=== PATIENT | female | born 1980 | race Caucasian/White ===

== ENCOUNTER 2023-03-26 20:30 | Emergency (ER) | payer BC, SELFPAY ==
--- NOTE | ~2023-03-26 | CT_ITS ---
EXAMINATION: CT ANGIOGRAM HEAD CT ANGIOGRAM NECK CLINICAL INFORMATION: Reason for Exam left side facial droop COMPARISON: Same-day CT head TECHNIQUE: Initial noncontrast high school science tutor imaging of the head and neck was performed. Comparison is made with noncontrast head CT from earlier today. Test bolus sequences followed by intravenous administration 70 mL of Omnipaque 350. Helical imaging was performed in the axial plane from the aortic arch to the skull vertex. Delayed postcontrast imaging of the head was also performed. The data was processed at the applied technologist's workstation for generation of MIP sequences. Angled MIPs and volume rendered reformatted images were also generated at an offline 3D workstation. Stenoses are assessed in accordance with Barajas et al. Quantification of Carotid Stenosis on CT Angiography. AJR 2006. 27(1):13-19. [address] CT examination was performed using dose optimization techniques as appropriate, variously including the following: *Automated exposure control *Adjustment of mA and/or kV according to patient size (this includes techniques or standardized protocols for targeted exams where dose is matched to indication/reason for exam; i.e. extremities or head) *Use of iterative reconstruction technique DLP: 1449.98 mGy-cm mGy-cm FINDINGS: CT HEAD: There is no abnormal intracranial enhancement. No mass-effect or ventricular shift is noted. No acute, territorial loss of mena-white differentiation. The ventricles and sulci are appropriate in size and configuration for the patient's stated age. Periventricular and subcortical white matter hypodensity is nonspecific but likely represents chronic microvascular ischemic change. No depressed calvarial fracture. The mastoid air cells and the visualized paranasal sinuses are well-aerated. CTA HEAD: Anterior circulation: Right internal carotid artery: No hemodynamically significant stenosis. Right middle cerebral artery: No hemodynamically significant stenosis. Right anterior cerebral artery: No hemodynamically significant stenosis. Left internal carotid artery: No hemodynamically significant stenosis. Left middle cerebral artery: No hemodynamically significant stenosis. Left anterior cerebral artery: No hemodynamically significant stenosis. Posterior circulation: Right vertebral artery: No hemodynamically significant stenosis. Left vertebral artery: No hemodynamically significant stenosis. Basilar artery: No hemodynamically significant stenosis. Right posterior cerebral artery: No hemodynamically significant stenosis. Left posterior cerebral artery: No hemodynamically significant stenosis. No high flow vascular malformation or significant aneurysmal dilatation is visualized. 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 CTA NECK: Aortic arch: Normal anatomy. Right common carotid artery: No hemodynamically significant stenosis. Right proximal internal carotid artery: No hemodynamically significant stenosis. Right mid/distal internal carotid artery: No hemodynamically significant stenosis. Left common carotid artery: No hemodynamically significant stenosis. Left proximal internal carotid artery: No hemodynamically significant stenosis. Left mid/distal internal carotid artery: No hemodynamically significant stenosis. Right vertebral artery: No hemodynamically significant stenosis. Left vertebral artery: No hemodynamically significant stenosis. CT NECK: No soft tissue abnormality in the neck. The visualized lung apices and upper mediastinum are within normal limits. CT/CT angio head neck stroke IMPRESSION: CT HEAD: No abnormal intracranial enhancement or territorial loss of mena-white differentiation. CTA NECK: No hemodynamically significant stenosis. CTA HEAD: No proximal vessel occlusion or high-grade stenosis. The above-mentioned findings were discussed with Dr Danny Ram by Dr. Lopez at 21:38 on 03/26/2023.
--- NOTE | ~2023-03-26 | CT_ITS ---
EXAMINATION: CT HEAD WITHOUT CONTRAST (STROKE PROTOCOL) CLINICAL INFORMATION: Stroke protocol. Left facial droop. COMPARISON: None available. TECHNIQUE: Contiguous axial imaging was performed from the skull base to vertex without intravenous administration of contrast. This CT examination was performed using dose optimization techniques as appropriate, variously including the following: *Automated exposure control *Adjustment of mA and/or kV according to patient size (this includes techniques or standardized protocols for targeted exams where dose is matched to indication/reason for exam; i.e. extremities or head) *Use of iterative reconstruction technique DLP: 604 mGy-cm. FINDINGS: There is no evidence of an extra-axial collection. There is no evidence of intra-axial or extra-axial hemorrhage. The ventricles and extra-axial CSF spaces are appropriate. Pang-white matter differentiation is normal. No mass, mass effect or infarct. The bone windows are normal. Mild inflammatory change in the right side of the sphenoid sinus. Paranasal sinuses, mastoid air cells and middle ears are otherwise clear. CT/CT head for stroke IMPRESSION: No acute intracranial pathology. Mild sphenoid sinus disease. This critical result was discussed with Dr Danny Ram at 2050 hours on 03/26/2023. It was ascertained that the content and urgency of the report was understood at the time of direct communication.
[2023-03-26 20:35] VITALS: BP 148/77; PULSE 97; RESP 18; TEMP 36.2; O2SAT 100; BMI 32.9
--- NOTE | 2023-03-26 20:40 | ECG_ITS ---
Test Reason : STROKE Blood Pressure : / mmHG Vent. Rate : 072 BPM Atrial Rate : 072 BPM P-R Int : 146 ms QRS Dur : 082 ms QT Int : 374 ms P-R-T Axes : 074 065 058 degrees QTc Int : 409 ms Normal sinus rhythm Normal ECG No previous ECGs available Referred By: Danny Ram Electronically Signed By:SABRA HUGHES MD
[2023-03-26 20:43] LABS: Prothrombin Time Whole Bld POC 12.2 sec (11.1-13.5)
[2023-03-26 20:46] LABS: Glucose, Whole Blood 113 mg/dL (60-115)
--- NOTE | 2023-03-26 20:46 | ED_ITS ---
HPI - Neuro Symptoms/Deficit General Chief Complaint: Stroke Stated Complaint: stroke? Time Seen by Provider: 03/26/23 20:40 Source: patient Limitations: no limitations History of Present Illness HPI Narrative: 42 years old with no significant past medical history, presents emergency room for left-sided facial droop. Patient reports that she was having dinner with her fami around 8:00 p.m. when they noticed that she had a facial droop and she could not close the left eye. Patient denies unilateral weakness, slurred speech, aphasia. No blurry vision, patient was able to ambulate and denies ataxia. Patient denies chest pain, abdominal pain, nausea or vomiting or recent trauma. report that she was positive to flu B last week Not on blood thinners or aspirin. NIHSS score on arrival 1 Time: 20:00 Timing confirmed by: family member Related Data Previous Rx's Medication Instructions Recorded prednisone 20 mg tablet 60 mg (3 x 20 mg) PO DAILY carrasco 03/26/23 palsy #21 tabs valacyclovir 1 gram tablet 1,000 mg PO Q8H #21 tabs 03/26/23 Allergies Allergy/AdvReac Type Severity Reaction Status Date / Time latex Allergy Unknown Verified 03/26/23 20:35 prochlorperazine Allergy Unknown Verified 03/26/23 20:35 [From Compazine] Review of Systems 2 Review of Systems: Yes all other systems are reviewed and are negative [facility] Social History Social History Smoked in Last 30 Days: No Use of substances other than those prescribed or required for medical reasons: No Physical Exam 2 Vital Signs: Vital Signs: Last Vital Signs Temp 97.9 F 03/26/23 21:24 Pulse 86 03/26/23 21:24 Resp 20 03/26/23 21:24 BP 137/69 03/26/23 21:24 Pulse Ox 98 03/26/23 21:24 O2 Del Method Room Air 03/26/23 21:24 BMI result Body Mass Index 32.9 General: Alert, Not in Distress Skin: No rash, warm HEENT: Atraumatic, No Exudate or Pharyngeal Erythema Resp: Normal Breath sounds bilaterally Cardio: Regular rate and Rhythm, Normal S1, S2 ABD: Abd soft, non tender, no guarding or rebound. Normal Bowel sounds. : No cva tenderness Neuro: Alert, oriented x4, PERRL Strenght 5/5 on all extremities Sensation is preserved in both lower and upper extremities Index to nose: normal left side facial droop with ptosis on the left side, and weakness of L eyebrow. No dysarthria, or aphasia No neglet. Visual moy are normal bilaterally Psych: Cooperative, NO SI Course Reevaluation(s) Reevaluation #1: I personally reviewed the patient's CT head which is normal. Discussed case with Neurology and repeated physical exam shows were clear weakness of the in the ER left side of the face. Patient physical exam, history, are consistent with Carrasco palsy. At this time I think that the risk of thrombolysis outweighed the benefit since likely the etiology is peripheral. The Will start patient on prednisone and valacyclovir for Carrasco palsy Time: 21:10 Reevaluation #2: No acute intracranial pathology. Mild sphenoid sinus disease. This critical result was discussed with Dr Danny Ram at 2050 hours on 03/26/2023. It was ascertained that the content and urgency of the report was understood at the time of direct communication Discussed CTA finding with radiology: no large vessle occlusion. Time: 21:38 Reevaluation #3: Repeated direct some prior to discharge is unchanged, patient has weakness of the left side of the face this involves her mouth, eyelid and 4 add. 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 Imaging was unremarkable which is also consistent with Carrasco palsy. Patient started on steroids and on antiviral. Will DC home Time: 21:39 Medications Administered Generic Name Dose Route Start Last Admin Trade Name Freq PRN Reason Stop Dose Admin Sodium Chloride 1,000 mls @ 999 mls/hr 03/26/23 20:45 03/26/23 21:12 Ns IV 03/26/23 21:45 999 mls/hr .Q1H1M SURESH Administration Discontinued Medications Generic Name Dose Route Start Last Admin Trade Name Freq PRN Reason Stop Dose Admin Iohexol 70 ml 03/26/23 21:06 03/26/23 21:07 Iohexol 350 Mg/Ml 100 Ml Infus..Btl IV 03/26/23 21:07 70 ml ONCE ONE Administration Lorazepam 0.5 mg 03/26/23 21:11 03/26/23 21:16 Lorazepam 0.5 Mg Tablet PO 03/26/23 21:12 0.5 mg ONCE ONE Administration Prednisone 60 mg 03/26/23 21:11 03/26/23 21:16 Prednisone 20 Mg Tablet PO 03/26/23 21:12 60 mg ONCE ONE Administration Valacyclovir HCl 1,000 mg 03/26/23 21:12 03/26/23 21:16 Valacyclovir Hcl 1,000 Mg Tablet PO 03/26/23 21:13 1,000 mg ONCE ONE Administration Medical Decision Making Medical Decision Making [facility] Narrative: Patient presented to the emergency room for left facial droop. Physical exam is consistent with Carrasco's palsy however she does have some sparing of the forehead therefore given the fact that patient will be within window for tPA stroke code was activated. Admission/Observation Consideration of admission/observation: Escalation of care including admission/observation considered Consult Healthcare Provider Management of the patient was discussed with: Psychiatric Aide Instructor (Neurology) Lab Data [facility] Lab Attestation statement: I reviewed the patient's lab results. 03/26/23 21:08 03/26/23 21:08 Labs: Lab Results 03/26/23 03/26/23 03/26/23 Range/Units 20:39 20:41 21:08 WBC 11.0 H (4.8-10.8) X10*3/uL RBC 4.23 (4.20-5.50) X10*6/uL Hgb 11.5 L (12.0-16.0) g/dl Hct 35.5 L (37.0-47.0) % MCV 83.9 (80.0-98.0) fL MCH 27.2 (27.0-33.0) pg MCHC 32.4 (31.0-35.0) g/dl RDW 13.0 (11.0-16.0) % Plt Count 228 (160-400) X10*3/uL MPV 9.7 (9.4-12.3) fL Immature Gran % (Auto) 0.3 (0.0-0.4) % Neut % (Auto) 62.7 (45-73) % Lymph % (Auto) 26.3 (20-40) % [place] % (Auto) 8.8 (2-11) % Eos % (Auto) 1.7 (0-4) % Baso % (Auto) 0.2 (0-2) % Lymph # (Auto) 2.9 (1.2-4.9) X10*3/uL [place] # (Auto) 1.0 (0.1-1.2) X10*3/uL Eos # (Auto) 0.2 (0.0-0.4) X10*3/uL Baso # (Auto) 0.0 (0.0-0.2) X10*3/uL Abs Immat Gran (auto) 0.03 (0.00-0.03) X10*3/uL Absolute Neuts (auto) 6.9 (2.0-8.3) x10*3/uL Absolute Nucleated RBC 0.000 (0.0-0.012) X10*3/uL Nucleated RBC % (auto) 0.0 (0.0-0.2) /100WBC PT 12.1 (11.1-13.3) SEC Whole Blood PT 12.2 (11.1-13.5) sec INR 1.0 (0.9-1.1) Whole Blood INR 1.0 (0.9-1.1) APTT 32.2 (26.0-36.4) SEC Sodium 136 (135-145) mmol/L Potassium 4.7 (3.3-5.1) mmol/L Chloride 107 (96-108) mmol/L Carbon Dioxide 22 (22-29) mmol/L Anion Gap 12 (12-20) BUN 12 (9-16) mg/dL Creatinine 0.80 (0.5-1.4) mg/dL Estim Creat Clear Calc 95.8 Estimated GFR > 60 POC Glucose 113 (60-115) mg/dL Random Glucose 111 (60-115) mg/dL Calcium 8.4 (8.4-10.2) mg/dL Total Creatine Kinase 68 (26-140) U/L Independent Interpretation I performed an independent interpretation of an: EKG (Normal sinus rhythm) and CT Scan Radiology Impression Discussion of test interpretation with radiology: I discussed test interpretation with the radiologist and I have reviewed the radiologist's reading. Prescription Management I considered prescription management with: Antiviral NIH Stroke Scale Internal: Initial- Upon Arrival Time: 20:50 Level of Consciousness: Alert Level of Consciousness Questions: Answers both questions correctly Level of Consciousness Commands: Performs both tasks correctly Best Gaze: Normal Visual: No visual loss Facial Palsy: Partial paralysis Motor Arm (Right): No drift Motor Arm (Left): No drift Motor Leg (Right): No drift Motor Leg (Left): No drift Limb Ataxia: Absent Sensory: Normal Best Language: No aphasia Dysarthia: Normal Extinction and Inattention: No abnormality Score: 2 Discharge Plan Discharge Clinical Impression: Carrasco palsy Patient Disposition: Home, Self-Care Instructions: Carrasco Palsy (ED) Additional Instructions: You were seen in the emergency room 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 This is treated with prednisone 60 mg once a day for 7 days and and antiviral medication called valacyclovir 1000 mg 3 times a day for 7 days. Most people recover completely however a small percentage of people may have some residual weakness. It is important to complete the entire course of medication to minimize the risk of residual weakness. Prescriptions: New prednisone 20 mg tablet 60 mg PO DAILY Qty: 21 0RF valacyclovir 1 gram tablet 1,000 mg PO Q8H Qty: 21 0RF Referrals: Hallie Santos MD [Physician] -
[2023-03-26] MEDS: iohexoL 350 MG/ML 100 ML INFUS..BTL 70 ML IV (21:07)
[2023-03-26] MEDS: 0.9 % Sodium Chloride 1,000 ML 999 ML IV (21:12)
[2023-03-26 21:13] LABS: MANUAL DIFF FLAG NO
[2023-03-26 21:15] LABS: Basophils Percent Auto 0.2 % (0-2); Eosinophils Absolute Auto 0.2 X10*3/uL (0.0-0.4); Eosinophils Percent Auto 1.7 % (0-4); Hematocrit 35.5 % (37.0-47.0); Hemoglobin 11.5 g/dl (12.0-16.0); Imm Gran Abs Auto 0.03 X10*3/uL (0.00-0.03); Imm Gran Pct Auto 0.3 % (0.0-0.4); Lymphocytes Absolute Auto 2.9 X10*3/uL (1.2-4.9); Lymphocytes Percent Auto 26.3 % (20-40); Mean Corpuscular HGB Conc 32.4 g/dl (31.0-35.0); Mean Corpuscular Hemoglobin 27.2 pg (27.0-33.0); Mean Corpuscular Volume 83.9 fL (80.0-98.0); Mean Platelet Volume 9.7 fL (9.4-12.3); Monocytes Percent Auto 8.8 % (2-11); Neutrophils Absolute Auto 6.9 x10*3/uL (2.0-8.3); Neutrophils Percent Auto 62.7 % (45-73); Platelet Count 228 X10*3/uL (160-400); Red Blood Count 4.23 X10*6/uL (4.20-5.50)
[2023-03-26] MEDS: predniSONE 20 MG TABLET 60 MG PO (21:16)
[2023-03-26] MEDS: valACYclovir HCL 1,000 MG TABLET 1000 MG PO (21:16)
[2023-03-26] MEDS: LORazepam 0.5 MG TABLET PO (21:16)
[2023-03-26 21:24] VITALS: BP 137/69; PULSE 86; RESP 20; TEMP 36.6; O2SAT 98
[2023-03-26 21:27] LABS: Prothrombin Time 12.1 SEC (11.1-13.3)
[2023-03-26 21:29] LABS: Partial Thromboplastin Time 32.2 SEC (26.0-36.4)
[2023-03-26 21:31] LABS: Anion Gap 12 (12-20); Blood Urea Nitrogen 12 mg/dL (9-16); Calcium 8.4 mg/dL (8.4-10.2); Carbon Dioxide 22 mmol/L (22-29); Chloride 107 mmol/L (96-108); Creatinine Clr Calc Pharmacy 95.8; Estimated Glomerular Filt Rate > 60; Glucose Random 111 mg/dL (60-115); Potassium 4.7 mmol/L (3.3-5.1); Sodium 136 mmol/L (135-145)
[2023-03-26 21:38] LABS: Stroke Lab Use COMPLETE; Troponin-I High Sensitivity < 2.7 ng/L (<3.5-17.0)
--- NOTE | 2023-03-26 21:42 | ED_ITS ---
HPI - Neuro Symptoms/Deficit General Chief Complaint: Stroke Stated Complaint: stroke? Time Seen by Provider: 03/26/23 20:40 Source: patient Limitations: no limitations Related Data Previous Rx's Medication Instructions Recorded carboxymethylcellulose sodium 1 % 1 drp ophthalmic (eye) Q6H #15 mL 03/26/23 eye drops (Artificial Tears (carboxymethylcellulose)) prednisone 20 mg tablet 60 mg (3 x 20 mg) PO DAILY carrasco 03/26/23 palsy #21 tabs valacyclovir 1 gram tablet 1,000 mg PO Q8H #21 tabs 03/26/23 Allergies Allergy/AdvReac Type Severity Reaction Status Date / Time latex Allergy Unknown Verified 03/26/23 20:35 prochlorperazine Allergy Unknown Verified 03/26/23 20:35 [From Compazine] PMFSH Social History Social History Smoked in Last 30 Days: No Use of substances other than those prescribed or required for medical reasons: No Physical Exam 2 Vital Signs: Vital Signs: Last Vital Signs Temp 97.9 F 03/26/23 21:24 Pulse 86 03/26/23 21:24 Resp 20 03/26/23 21:24 BP 137/69 03/26/23 21:24 Pulse Ox 98 03/26/23 21:24 O2 Del Method Room Air 03/26/23 21:24 BMI result Body Mass Index 32.9 Medications Administered Generic Name Dose Route Start Last Admin Trade Name Freq PRN Reason Stop Dose Admin Sodium Chloride 1,000 mls @ 999 mls/hr 03/26/23 20:45 03/26/23 21:12 Ns IV 03/26/23 21:45 999 mls/hr .Q1H1M SURESH Administration Discontinued Medications Generic Name Dose Route Start Last Admin Trade Name Freq PRN Reason Stop Dose Admin Iohexol 70 ml 03/26/23 21:06 03/26/23 21:07 Iohexol 350 Mg/Ml 100 Ml Infus..Btl IV 03/26/23 21:07 70 ml ONCE ONE Administration Lorazepam 0.5 mg 03/26/23 21:11 03/26/23 21:16 Lorazepam 0.5 Mg Tablet PO 03/26/23 21:12 0.5 mg ONCE ONE Administration Prednisone 60 mg 03/26/23 21:11 03/26/23 21:16 Prednisone 20 Mg Tablet PO 03/26/23 21:12 60 mg ONCE ONE Administration Valacyclovir HCl 1,000 mg 03/26/23 21:12 03/26/23 21:16 Valacyclovir Hcl 1,000 Mg Tablet PO 03/26/23 21:13 1,000 mg ONCE ONE Administration Medical Decision Making Lab Data 03/26/23 21:08 03/26/23 21:08 Labs: Lab Results 03/26/23 03/26/23 03/26/23 Range/Units 20:39 20:41 21:08 WBC 11.0 H (4.8-10.8) X10*3/uL RBC 4.23 (4.20-5.50) X10*6/uL Hgb 11.5 L (12.0-16.0) g/dl Hct 35.5 L (37.0-47.0) % MCV 83.9 (80.0-98.0) fL MCH 27.2 (27.0-33.0) pg MCHC 32.4 (31.0-35.0) g/dl RDW 13.0 (11.0-16.0) % Plt Count 228 (160-400) X10*3/uL MPV 9.7 (9.4-12.3) fL Immature Gran % (Auto) 0.3 (0.0-0.4) % Neut % (Auto) 62.7 (45-73) % Lymph % (Auto) 26.3 (20-40) % [place] % (Auto) 8.8 (2-11) % Eos % (Auto) 1.7 (0-4) % Baso % (Auto) 0.2 (0-2) % Lymph # (Auto) 2.9 (1.2-4.9) X10*3/uL [place] # (Auto) 1.0 (0.1-1.2) X10*3/uL Eos # (Auto) 0.2 (0.0-0.4) X10*3/uL Baso # (Auto) 0.0 (0.0-0.2) X10*3/uL Abs Immat Gran (auto) 0.03 (0.00-0.03) X10*3/uL Absolute Neuts (auto) 6.9 (2.0-8.3) x10*3/uL Absolute Nucleated RBC 0.000 (0.0-0.012) X10*3/uL Nucleated RBC % (auto) 0.0 (0.0-0.2) /100WBC PT 12.1 (11.1-13.3) SEC Whole Blood PT 12.2 (11.1-13.5) sec INR 1.0 (0.9-1.1) Whole Blood INR 1.0 (0.9-1.1) APTT 32.2 (26.0-36.4) SEC Sodium 136 (135-145) mmol/L Potassium 4.7 (3.3-5.1) mmol/L Chloride 107 (96-108) mmol/L Carbon Dioxide 22 (22-29) mmol/L Anion Gap 12 (12-20) BUN 12 (9-16) mg/dL Creatinine 0.80 (0.5-1.4) mg/dL Estim Creat Clear Calc 95.8 Estimated GFR > 60 POC Glucose 113 (60-115) mg/dL Random Glucose 111 (60-115) mg/dL Calcium 8.4 (8.4-10.2) mg/dL Total Creatine Kinase 68 (26-140) U/L Troponin I High Sens < 2.7 (<3.5-17.0) ng/L Discharge Plan Discharge Clinical Impression: Carrasco palsy Patient Disposition: Home, Self-Care Instructions: Carrasco Palsy (ED) Additional Instructions: You were seen in the emergency room 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 This is treated with prednisone 60 mg once a day for 7 days and and antiviral medication called valacyclovir 1000 mg 3 times a day for 7 days. Most people recover completely however a small percentage of people may have some residual weakness. It is important to complete the entire course of medication to minimize the risk of residual weakness. Prescriptions: New prednisone 20 mg tablet 60 mg PO DAILY Qty: 21 0RF valacyclovir 1 gram tablet 1,000 mg PO Q8H Qty: 21 0RF Artificial Tears (cmc) 1 % drops 1 drp ophthalmic (eye) Q6H Qty: 15 0RF Referrals: Hallie Santos MD [Physician] -
== END 2023-03-26 21:58 | disposition home or self-care (01) ==
PROVIDERS: Emergency Provider Student in an Organized Health Care Education/Training Program; PCP Student in an Organized Health Care Education/Training Program
DX: G51.0 Bell's palsy (principal); R29.702 NIHSS score 2
CPT/HCPCS: 36415; 70450; 70496; 70498; 80048; 82550; 82947; 84484; 85025; 85610; 85730; 93005; 99285; Q9967

== ENCOUNTER 2023-10-26 03:37 | Emergency (ER) | payer BC, SELFPAY ==
[2023-10-26 03:44] VITALS: BP 110/80; PULSE 85; RESP 18; TEMP 36.6; O2SAT 99; BMI 31.6
[2023-10-26 04:02] LABS: Appearance Urine Cloudy; Color Urine Yellow; Glucose Urine UA Negative (Negative); Leukocyte Esterase Urine Moderate (2+) (Negative); Nitrite Urine Negative (Negative); PH 6.5 (5.0-9.0); Specific Gravity - Urine 1.025 (1.005-1.025); UMIC TRIGGER UACC YES; Urine Blood Negative (Negative); Urine Ketones Negative (Negative); Urine Protein Negative (Neg-Trace)
[2023-10-26 04:04] LABS: Bacteria Urine 3+ (None Seen); Hyaline Casts Urine 0-2 /LPF (0-2); RBC Urine 0-2 /HPF (0-2); UACC Culture Trigger YES
--- NOTE | 2023-10-26 05:38 | ED_ITS ---
HPI - Female Genitourinary General Chief complaint: Urogenital-Female Stated complaint: UTI? 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 #21 tabs valacyclovir 1 gram tablet 1,000 mg PO Q8H #21 tabs 03/26/23 cefuroxime axetil 250 mg tablet 250 mg PO Q12H 10 days #20 tabs 10/26/23 fluconazole 150 mg tablet 150 mg PO QWEEK 2 doses #2 tabs 10/26/23 morphine 15 mg immediate release 15 mg PO Q6H PRN pain #10 tabs 10/26/23 tablet Allergies Allergy/AdvReac Type Severity Reaction Status Date / Time latex Allergy Unknown Verified 10/26/23 03:47 prochlorperazine Allergy Unknown Verified 10/26/23 03:47 [From Compazine] [facility] Social History Social History Smoked in Last 30 Days: No Use of substances other than those prescribed or required for medical reasons: Yes Substance Use Type: Marijuana Advance Directives: No Advance Directives Information Provided: No Advance Directives on File: No Physical Exam 2 Vital Signs: Vital Signs: Last Vital Signs Temp 97.3 F 10/26/23 06:23 Pulse 94 10/26/23 06:23 Resp 16 10/26/23 06:23 BP 112/74 10/26/23 06:23 Pulse Ox 97 10/26/23 06:23 O2 Del Method Room Air 10/26/23 06:23 BMI result Body Mass Index 31.6 Medications Administered Generic Name Dose Route Start Last Admin Trade Name Freq PRN Reason Stop Dose Admin Sodium Chloride 1,000 mls @ 999 mls/hr 10/26/23 07:05 10/26/23 07:17 Ns IV 10/26/23 08:05 999 mls/hr .Q1H1M STA Administration Discontinued Medications Generic Name Dose Route Start Last Admin Trade Name Freq PRN Reason Stop Dose Admin Cefuroxime Axetil 250 mg 10/26/23 05:52 10/26/23 07:01 Cefuroxime Axetil 250 Mg Tablet PO 10/26/23 05:53 250 mg ONCE ONE Administration Diphenhydramine HCl 25 mg 10/26/23 05:52 10/26/23 07:01 Diphenhydramine Hcl 25 Mg Capsule PO 10/26/23 05:53 25 mg ONCE ONE Administration Morphine Sulfate 15 mg 10/26/23 05:54 10/26/23 07:01 Morphine Sulfate Immed Release 15 Mg Tablet PO 10/26/23 05:55 15 mg ONCE ONE Administration Medical Decision Making Lab Data 10/26/23 07:16 10/26/23 07:16 Labs: Lab Results 10/26/23 10/26/23 Range/Units 03:55 07:16 WBC 8.4 (4.8-10.8) X10*3/uL RBC 4.53 (4.20-5.50) X10*6/uL Hgb 12.9 (12.0-16.0) g/dl Hct 38.0 (37.0-47.0) % MCV 83.9 (80.0-98.0) fL MCH 28.5 (27.0-33.0) pg MCHC 33.9 (31.0-35.0) g/dl RDW 13.4 (11.0-16.0) % Plt Count 213 (160-400) X10*3/uL MPV 9.5 (9.4-12.3) fL Immature Gran % (Auto) 0.1 (0.0-0.4) % Neut % (Auto) 62.4 (45-73) % Lymph % (Auto) 23.5 (20-40) % [place] % (Auto) 8.9 (2-11) % Eos % (Auto) 5.0 H (0-4) % Baso % (Auto) 0.1 (0-2) % Lymph # (Auto) 2.0 (1.2-4.9) X10*3/uL [place] # (Auto) 0.8 (0.1-1.2) X10*3/uL Eos # (Auto) 0.4 (0.0-0.4) X10*3/uL Baso # (Auto) 0.0 (0.0-0.2) X10*3/uL Abs Immat Gran (auto) 0.01 (0.00-0.03) X10*3/uL Absolute Neuts (auto) 5.2 (2.0-8.3) x10*3/uL Absolute Nucleated RBC 0.000 (0.0-0.012) X10*3/uL Nucleated RBC % (auto) 0.0 (0.0-0.2) /100WBC Sodium 138 (135-145) mmol/L Potassium 3.9 (3.3-5.1) mmol/L Chloride 109 H (96-108) mmol/L Carbon Dioxide 23 (22-29) mmol/L Anion Gap 10 L (12-20) BUN 15 (9-16) mg/dL Creatinine 0.70 (0.5-1.4) mg/dL Estim Creat Clear Calc 111.2 Estimated GFR > 60 Random Glucose 112 (60-115) mg/dL Calcium 8.9 (8.4-10.2) mg/dL Total Bilirubin 0.2 (0.0-1.0) mg/dL AST 14 (5-31) U/L ALT 13 (0-31) U/L Alkaline Phosphatase 76 (39-117) U/L Total Protein 7.2 (6.5-8.0) g/dL Albumin 4.1 (3.5-5.0) g/dL Urine Color Yellow Urine Appearance Cloudy Urine pH 6.5 (5.0-9.0) Ur Specific [place] 1.025 (1.005-1.025) Urine Protein Negative (Neg-Trace) mg/dL Urine Glucose (UA) Negative (Negative) mg/dL Urine Ketones Negative (Negative) mg/dL Urine Blood Negative (Negative) Urine Nitrite Negative (Negative) Ur Leukocyte Esterase Moderate (2+) H (Negative) Urine RBC 0-2 (0-2) /HPF Urine WBC 11-20 H (0-5) /HPF Ur Squamous Epith Cells 11-20 (0-2) /HPF Urine Bacteria 3+ (None Seen) Hyaline Casts 0-2 (0-2) /LPF Discharge Plan Discharge Clinical Impression: Urethritis Patient Disposition: Home, Self-Care Instructions: Urinary Tract Infection in Women (ED) Additional Instructions: Your blood work was normal. Your symptoms are consistent with either a bladder infection or infection of your urethral (urethritis) Take cefuroxime 250 mg pills, 1 pill every 12 hours times 10 days, make sure you finish the whole prescription Take ibuprofen 200 mg pills, 3 pills every 6 hours as needed for pain. Take Tylenol (acetaminophen) 2 pills every 6 hours as needed for pain. For pain not relieved by ibuprofen or Tylenol take morphine 15 mg pills, 1 pill every 6 hours as needed for pain. This medication will make you sleepy, do not drive or work while taking this medication. Morphine is a narcotic medication and can be addicting. If you are concerned about addiction you can ask the pharmacist for less pills or do not get this prescription filled. If you developed a yeast infection, take Diflucan (fluconazole) 150 mg pills. Take 1 pill at the beginning with a yeast infection and then take 1 pill 1 week later. Follow-up with your doctor in 2 days. Please return to the emergency department if your symptoms get worse or if you develop any symptoms that are concerning to you. Prescriptions: New cefuroxime axetil 250 mg tablet 250 mg PO Q12H 10 Days Qty: 20 0RF morphine 15 mg tablet 15 mg PO Q6H PRN (Reason: pain) Qty: 10 0RF Rx Instructions: The patient may ask for partial fill; Partial Fill upon patient request. fluconazole 150 mg tablet 150 mg PO QWEEK Qty: 2 0RF No Action prednisone 20 mg tablet 60 mg PO DAILY Qty: 21 0RF valacyclovir 1 gram tablet 1,000 mg PO Q8H Qty: 21 0RF Artificial Tears (cmc) 1 % drops 1 drp ophthalmic (eye) Q6H Qty: 15 0RF Print Language: Nepali
--- NOTE | 2023-10-26 06:19 | PC.NURSE ---
Pt ca&ox4, no signs of distress. Pt reporting 10/10 pain during urination and about 10 mins after. Pts family at bedside. Plan of care ongoing.
[2023-10-26 06:23] VITALS: BP 112/74; PULSE 94; RESP 16; TEMP 36.3; O2SAT 97
[2023-10-26] MEDS: Morphine Sulfate Immed Release 15 MG TABLET PO (07:01)
[2023-10-26] MEDS: cefuroxime axetiL 250 MG TABLET PO (07:01)
[2023-10-26] MEDS: diphenhydrAMINE HCL 25 MG CAPSULE PO (07:01)
--- NOTE | 2023-10-26 07:04 | PC.NURSE ---
Pt medicated per jul. Plan of care ongoing.
[2023-10-26] MEDS: 0.9 % Sodium Chloride 1,000 ML 999 ML IV (07:17)
[2023-10-26 07:21] LABS: MANUAL DIFF FLAG NO
[2023-10-26 07:36] LABS: Basophils Percent Auto 0.1 % (0-2); Eosinophils Absolute Auto 0.4 X10*3/uL (0.0-0.4); Hemoglobin 12.9 g/dl (12.0-16.0); Imm Gran Abs Auto 0.01 X10*3/uL (0.00-0.03); Imm Gran Pct Auto 0.1 % (0.0-0.4); Lymphocytes Percent Auto 23.5 % (20-40); Mean Corpuscular HGB Conc 33.9 g/dl (31.0-35.0); Mean Corpuscular Hemoglobin 28.5 pg (27.0-33.0); Mean Corpuscular Volume 83.9 fL (80.0-98.0); Mean Platelet Volume 9.5 fL (9.4-12.3); Monocytes Absolute Auto 0.8 X10*3/uL (0.1-1.2); Monocytes Percent Auto 8.9 % (2-11); Neutrophils Absolute Auto 5.2 x10*3/uL (2.0-8.3); Neutrophils Percent Auto 62.4 % (45-73); Platelet Count 213 X10*3/uL (160-400); Red Blood Count 4.53 X10*6/uL (4.20-5.50); Red Cell Distribution Width 13.4 % (11.0-16.0); White Blood Count 8.4 X10*3/uL (4.8-10.8)
[2023-10-26 07:42] LABS: Alanine Aminotransferase 13 U/L (0-31); Albumin Level 4.1 g/dL (3.5-5.0); Alkaline Phosphatase 76 U/L (39-117); Anion Gap 10 (12-20); Aspartate Amino Transferase 14 U/L (5-31); Bilirubin Total 0.2 mg/dL (0.0-1.0); Blood Urea Nitrogen 15 mg/dL (9-16); Calcium 8.9 mg/dL (8.4-10.2); Carbon Dioxide 23 mmol/L (22-29); Chloride 109 mmol/L (96-108); Creatinine Clr Calc Pharmacy 111.2; Estimated Glomerular Filt Rate > 60; Glucose Random 112 mg/dL (60-115); Potassium 3.9 mmol/L (3.3-5.1); Sodium 138 mmol/L (135-145); Total Protein 7.2 g/dL (6.5-8.0)
[2023-10-26 08:39] VITALS: BP 116/67; PULSE 79; RESP 16; TEMP 36.6; O2SAT 98
== END 2023-10-26 09:11 | disposition home or self-care (01) ==
PROVIDERS: Emergency Provider Emergency Medicine Emergency Medical Services; PCP Student in an Organized Health Care Education/Training Program
DX: N34.2 Other urethritis (principal)
CPT/HCPCS: 36415; 80053; 81001; 81003; 85025; 87086; 99283; 99285